=== PATIENT | female | born 1945 | race Caucasian/White ===

== ENCOUNTER 2019-10-28 17:46 | Emergency (ER) | payer MEDICARE, OTHER ==
[~2019-10-28] VITALS: Ht 162.6 cm; Wt 86.2 kg
[2019-10-28] MEDS ORDERED: LIDOCAINE/PRILOCAINE 2.5-2.5% KIT TOP ONE (18:00)
[2019-10-28] MEDS ORDERED: TETANUS/DIPHTHERIA TOX ADULT 0.5 ML SYR IM ONE (18:00)
--- NOTE | 2019-10-28 18:54 | Diagnostic Imaging Report ---
CT BRAIN WO HISTORY: Trauma COMPARISON: None. Technique: Noncontrast axial scans were obtained from skull base to the vertex. Coronal and sagittal reconstructions obtained from the axial data. One or more of the following dose reduction techniques were used: Automated exposure control, adjustment of the mA and/or kV according to patient size, and/or utilization of iterative reconstruction technique. DISCUSSION: Scalp/Skull: Small left occipital scalp hematoma. No calvarial fracture. Brain sulci: Normal for age. Ventricles: Unremarkable. Extra-axial spaces: No masses or fluid collections. Carotid siphon calcifications are present. Parenchyma: Mild bilateral deep white matter hypodensity is likely chronic microvascular ischemic change. Otherwise, no masses, hemorrhage, or large vascular territory acute infarct. Dural sinuses: No abnormal densities. Sellar/Suprasellar region: Intact. Skull base: Intact. Incidental findings: Trace left mastoid effusion IMPRESSION: 1. No acute intracranial abnormalities. 2. Mild supratentorial chronic microvascular ischemic change. Signed by: Dr. Yandel Enrique M.D. on 10/28/2019 6:50 PM
--- NOTE | 2019-10-28 18:57 | Diagnostic Imaging Report ---
CT CERVICAL SPINE WO HISTORY: Fall COMPARISON: Concurrent head CT TECHNIQUE: CT of the cervical spine without contrast. Sagittal and coronal reformations were created. One or more of the following dose reduction techniques were used: Automated exposure control, adjustment of the mA and/or kV according to patient size, and/or utilization of iterative reconstruction technique. FINDINGS: Cervical lordosis is preserved. There is no significant scoliosis. No fractures, compression deformity, or destructive osseous lesions are seen. The craniocervical junction is intact. No gross spinal canal masses are seen. The paravertebral and paraspinal soft tissues are unremarkable. Moderate to severe multilevel spondylotic changes are present. There is at least mild degenerative canal stenosis from C3-C4 to C6-C7. Grade 1 anterolisthesis of C2 on C3 is due to facet arthrosis. 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 IMPRESSION: No acute osseous abnormalities. Moderate to severe multilevel spondylosis. Signed by: Dr. Yandel Enrique M.D. on 10/28/2019 6:53 PM
[2019-10-28 19:08] VITALS: BP 134/77
== END 2019-10-28 19:09 | disposition home or self-care (01) ==
LOC: ER 17:46
DX: S00.93XA Contusion of unspecified part of head, initial encounter (principal); S01.01XA Laceration without foreign body of scalp, initial encounter; W01.0XXA Fall on same level from slipping, tripping and stumbling without subsequent striking against object, initial encounter; Y92.008 Other place in unspecified non-institutional (private) residence as the place of occurrence of the external cause; I10 Essential (primary) hypertension; K21.9 Gastro-esophageal reflux disease without esophagitis; Z23 Encounter for immunization
CPT/HCPCS: 70450; 72125; 90471; 90714; 99284

== ENCOUNTER 2019-11-08 15:46 | Emergency (ER) | payer MEDICARE, OTHER ==
[~2019-11-08] VITALS: Ht 162.6 cm; Wt 86.2 kg
--- OUTSIDE RECORDS SUMMARY | 2019-11-08 15:49 | XMS REPORT ---
Author Author [facility] [place] Address Unknown Phone Unavailable Care Team Providers Care Chief Enterprise Architect Name Role Phone Vickie CANALES Unavailable Unavailable Problems This patient has no known problems. Allergies, Adverse Reactions, Alerts This patient has no known allergies or adverse reactions. Medications This patient has no known medications. Results Test Description Test Time Test Comments Text Results Atomic Results Result Comments CT CERVICAL SPINE WO 2019-10-28 18:51:00 [place] [address] Patient Name: MILE MULLINS MR #: [id number] : 1945 Age/Sex: 74/F Req #: [id number] Adm Physician: Ordered by: ADALI CANALES MD Report #: [id number] Location: ER Room/Bed: Procedure: [id number] CT/CT CERVICAL SPINE WO Exam Date: 10/28/19 Exam Time: 1755 REPORT STATUS: Signed CT CERVICAL SPINE WO HISTORY: Fall COMPARISON : Concurrent head CT TECHNIQUE: CT of the cervical spine without contrast. Sagittal and coronal reformations were created. One or more of the following dose reduction techniques were used: Automated exposure control, adjustment of the mA and/or kV according to patient size, and/or utilization of iterative reconstruction technique. FINDINGS: Cervical lordosis is preserved. There is no significant scoliosis. No fractures, compression deformity, or destructive osseous lesions are seen. The craniocervical junction is intact. No gross spinal canal masses are seen. The paravertebral and paraspinal soft tissues are unremarkable. Moderate to severe multilevel spondylotic changes are present. There is at least mild degenerative canal stenosis from C3-C4 to C6-C7. Grade 1 anterolisthesis of C2 on C3 is due to facet arthrosis. 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 IMPRESSION: No acute osseous abnormalities. Moderate to severe multilevel spondylosis. Signed by: Dr. Yandel Anderson M.D. on 10/28/2019 6:53 PM Dictated By: YANDEL ANDERSON MD 52 Transcribed By: STAS on 10/28/191852 COPY TO: ADALI CANALES MD CT BRAIN WO 2019-10-28 18:48:00 [place] [address] Patient Name: MILE MULLINS MR #: [id number] : 1945 Age/Sex: 74/F Req #: [id number] Adm Physician: Ordered by: ADALI CANALES MD Report #: [id number] Location: ER Room/Bed: Procedure: [id number] CT/CT BRAIN WO Exam Date: 10/28/19 Exam Time: 1755 REPORT STATUS: Signed CT BRAIN WO HISTORY: Trauma COMPARISON: None. Technique: Noncontrast axial scans were obtained from skull base to the vertex. Coronal and sagittal reconstructions obtained from the axial data. One or more of the following dose reduction techniques were used: Automated exposure control, adjustment of the mA and/or kV according to patient size, and/or utilization of iterative reconstruction technique. DISCUSSION: Scalp/Skull: Small left occipital scalp hematoma. No calvarial fracture. Brain sulci: Normal for age. Ventricles: Unremarkable. Extra-axial spaces: No masses or fluid collections. Carotid siphon calcifications are present. Parenchyma: Mild bilateral deep white matter hypodensity is likely chronic microvascular ischemic change. Otherwise, no masses, hemorrhage, or large vascular territory acute infarct. Dural sinuses: No abnormal densities. Sellar/Suprasellar region: Intact. Skull base: Intact. Incidental findings: Trace left mastoid effusion IMPRESSION: 1. No acute intracranial abnormalities. 2. Mild supratentorial chronic microvascular ischemic change. Signed by: Dr. Yandel Anderson M.D. on 10/28/2019 6:50 PM Dictated By: YANDEL ANDERSON MD 49 Transcribed By: STAS on 10/28/191849 COPY TO: ADALI CANALES MD
== END 2019-11-08 16:22 | disposition home or self-care (01) ==
LOC: ER 15:53
DX: Z48.00 Encounter for change or removal of nonsurgical wound dressing (principal)
CPT/HCPCS: 99282

== ENCOUNTER 2019-11-13 19:40 | Emergency (ER) | payer MEDICARE, OTHER ==
[~2019-11-13] VITALS: Ht 162.6 cm; Wt 86.2 kg
[2019-11-13] MEDS ORDERED: TRAMADOL HCL 50 MG TAB PO ONE (21:00)
--- NOTE | 2019-11-13 22:33 | Diagnostic Imaging Report ---
X-RAY PELVIS 1 VIEW AND LEFT HIP 2 VIEWS HISTORY: Pain. COMPARISON: None available. FINDINGS: Central pelvic osseous structures partially obscured by overlying bowel gas. Bones: No acute displaced fracture. Osseous alignment is within normal limits. Joints: The joint spaces are well-maintained. Degenerative changes in the lower lumbar spine, hips, and pelvis. Soft tissues: Calcific enthesopathic changes about the pelvis greater trochanters. Pelvic phleboliths. IMPRESSION: 1. No acute radiographic osseous abnormality. 2. Degenerative changes in the lower lumbar spine, hips, and pelvis. Signed by: Santo Alberts DO on 11/13/2019 10:30 PM
--- NOTE | 2019-11-13 22:38 | Diagnostic Imaging Report ---
X-ray left shoulder 2 views X-ray left clavicle 2 views HISTORY: Pain. COMPARISON: None available. FINDINGS: Bones: No acute displaced fracture. Osseous alignment is within normal limits. Joints: No dislocations. Osteophytes in the acromioclavicular and glenohumeral joint. Moderate degenerative changes in the cervical spine. Soft tissues: The soft tissues appear unremarkable. IMPRESSION: 1. No acute radiographic osseous abnormality. 2. Degenerative changes in the shoulder. 3. Moderate degenerative changes in the cervical spine. Signed by: Santo Alberts DO on 11/13/2019 10:35 PM
--- NOTE | 2019-11-13 22:41 | Diagnostic Imaging Report ---
X-ray left hand 3 views X-ray left wrist 3 views HISTORY: Pain. COMPARISON: None available. FINDINGS: Bones: No acute displaced fracture. Osseous alignment is within normal limits. Low bone mineral density. Joints: No dislocations. Scattered degenerative changes in the fingers and hand, worst at the first carpometacarpal joint. Soft tissues: The soft tissues appear unremarkable. IMPRESSION: 1. No acute radiographic osseous abnormality. 2. Scattered degenerative changes in the fingers and hand, worst at the first carpometacarpal joint. 3. Low bone mineral density. Signed by: Santo Alberts DO on 11/13/2019 10:37 PM
[2019-11-14] MEDS ORDERED: IBUPROFEN 400 MG TAB PO ONE (00:45)
[2019-11-14] MEDS ORDERED: HYDROCODONE/APAP 5MG-325MG TAB PO ONE (00:45)
[2019-11-14] MEDS ORDERED: ONDANSETRON HCL 4 MG ORAL DISINTEGRATING TAB PO ONE (00:45)
[2019-11-14] MEDS ORDERED: LIDOCAINE 5% PATCH TP ONE (02:45)
[2019-11-14] MEDS ORDERED: MAGNESIUM/ALUMINUM/SIMETHICONE 30 ML UDC PO ONE (03:30)
[2019-11-14 06:34] VITALS: BP 104/52
== END 2019-11-14 06:53 | disposition home or self-care (01) ==
LOC: ER 19:40
DX: M25.512 Pain in left shoulder (principal); M25.532 Pain in left wrist; M25.552 Pain in left hip; W01.0XXA Fall on same level from slipping, tripping and stumbling without subsequent striking against object, initial encounter; Y92.000 Kitchen of unspecified non-institutional (private) residence as the place of occurrence of the external cause; I10 Essential (primary) hypertension; K21.9 Gastro-esophageal reflux disease without esophagitis
CPT/HCPCS: 73000; 73030; 73110; 73130; 73502; 99283; Q0162

== ENCOUNTER → 2024-09-20 | Day surgery (SDC) | payer MEDICARE, OTHER ==
[2024-09-17 11:52] LABS: BASOPHILS # (AUTO) 0.1 (0.0-0.1); BASOPHILS % 0.6 % (0.0-1.0); EOSINOPHILS # (AUTO) 0.2 (0.0-0.4); EOSINOPHILS % 1.4 % (0.0-6.0); HEMATOCRIT 40.9 % (34.2-44.1); HEMOGLOBIN 12.8 g/dL (12.0-16.0); LYMPHOCYTES # (AUTO) 1.6 (1.0-3.2); LYMPHOCYTES % 13.4 % (18.0-39.1); MEAN CORPUSCULAR HEMOGLOBIN 29.5 pg (28-32); MEAN CORPUSCULAR HGB CONC 31.3 g/dL (31-35); MEAN CORPUSCULAR VOLUME 94.2 fL (81-99); MONOCYTES # (AUTO) 1.5 (0.2-0.8); MONOCYTES % 12.5 % (4.4-11.3); NEUTROPHILS # (AUTO) 8.8 (2.1-6.9); NEUTROPHILS % 71.7 % (38.7-80.0); PLATELET COUNT 297 x10e3/uL (140-360); RED BLOOD COUNT 4.34 x10e6/uL (3.6-5.1); RED CELL DISTRIBUTION WIDTH 13.2 % (11.7-14.4)
[~2024-09-20] MED LIST: AMLODIPINE BESYL5 MG PO; ASPIRIN81 MG PO; BUPIVACAINE HCL 0.5% 10ML MPF VIAL INJ ONE; CARVEDILOL12.5 MG PO; CO Q10200 MG PO; CYMBALTA30 MG PO; FENTANYL CITRATE/PF 100MCG/2 ML INJ ONE; IOPAMIDOL 200 MG/ML 20 ML VIAL IT ONE; IOPAMIDOL 610MG/1ML 300 MG/ML VIAL IV ONE; LIDOCAINE HCL 1% LOCAL INJ 20 ML VIAL ONE; LIPITOR20 MG PO; LOSARTAN-HCTZ1 EAC2 PO; NEXIUM40 MG PO; ONDANSETRON ODT4 MG PO; TRIAMCINOLONE ACET 40 MG/ML VIAL ONE; VITAMIN D3125 MCG PO; [UNRECOGNIZED DRUG - REMARK] PO
[2024-09-20] MEDS: LACTATED RINGER'S 1,000 ML ONE (09:47)
[2024-09-20 12:05] VITALS: TEMP 97.1
[2024-09-20 12:25] VITALS: BP 131/66; PULSE 63; RESP 18; O2SAT 99
== END | disposition home or self-care (01) ==
LOC: OR 09:38
PROVIDERS: ATTEND Specialist
DX: M16.12 Unilateral primary osteoarthritis, left hip (principal); I10 Essential (primary) hypertension; E78.00 Pure hypercholesterolemia, unspecified; E78.5 Hyperlipidemia, unspecified; K21.9 Gastro-esophageal reflux disease without esophagitis; K44.9 Diaphragmatic hernia without obstruction or gangrene; K28.9 Gastrojejunal ulcer, unspecified as acute or chronic, without hemorrhage or perforation; R42 Dizziness and giddiness; F41.9 Anxiety disorder, unspecified; F32.A Depression, unspecified; Z88.6 Allergy status to analgesic agent; Z01.810 Encounter for preprocedural cardiovascular examination; Z01.812 Encounter for preprocedural laboratory examination; Z79.82 Long term (current) use of aspirin; Z79.899 Other long term (current) drug therapy; Z68.31 Body mass index [BMI] 31.0-31.9, adult; Z91.81 History of falling; Z87.820 Personal history of traumatic brain injury
CPT/HCPCS: 20610; 36415; 77002; 85025; 93005; J2003; J3010; J3301; J7121; Q9967